=== PATIENT | male | born 1965 | race Caucasian/White ===

== ENCOUNTER 2016-07-14 09:08 | Day surgery (SDC) | payer OTHER ==
[2016-07-13 08:34] VITALS: BMI 21.2
[~2016-07-14 09:08] MED LIST: LACTATED RINGERS 1,000 ML IV SCH
[2016-07-14 09:47] VITALS: TEMP 97.5
[2016-07-14] MEDS ORDERED: PROPOFOL 10 MG/ML 20 ML VIAL IV ONE (10:46)
[2016-07-14] MEDS ORDERED: LIDOCAINE 1% INJ 10MG/ML (20 ML MDV) ONE (10:46)
--- NOTE | 2016-07-14 11:18 | P.PCN ---
Date of Procedure: 07/14/16 Procedure(s) Performed: Procedure: Total colonoscopy. Preoperative diagnosis: Screening for neoplasia. Postoperative diagnosis: Poor preparation on the right side, otherwise, exam within normal limits. Preparation: HalfLytely prep. Sedation: Was provided by anesthesia. Brief clinical history: The patient is a 50-year-old male who is referred for this evaluation for screening for neoplasia. He has no abdominal complaints, bleeding or anemia. No family history of colon cancer. This would be his first colonoscopy. Procedure: With the patient on his left lateral decubitus position and after informed consent and adequate sedation, the perianal area was inspected and it did not show any fissures or fistulas. There were no masses felt on digital rectal examination. The Olympus CFQ 160L video colonoscope was then inserted in the rectum in the usual fashion and advanced to the cecum. The preparation was not ideal on the right side and cecum with sticky fecal material that could not be washed off the wall completely. Where visualized, the mucosa appeared healthy. No polyps or tumors were seen or any obvious diverticular disease. I retroflexed endoscope in the rectum before the endoscope was withdrawn. Low- grade internal hemorrhoids were noted but there was no bleeding. The patient tolerated the procedure well. Plan: The patient was reassured. He will follow up with you as planned and I recommended repeat exam in 5 years before we go with a 10-year scheduled.
[2016-07-14 11:37] VITALS: RESP 18
[2016-07-14 11:52] VITALS: BP 135/77; PULSE 49
== END 2016-07-14 12:20 | disposition home or self-care (01) ==
LOC: ORWHC2ENDO 09:08
DX: Z12.11 Encounter for screening for malignant neoplasm of colon (principal); K64.8 Other hemorrhoids; F17.200 Nicotine dependence, unspecified, uncomplicated
CPT/HCPCS: J2001; J2704; G0121; 45378

== ENCOUNTER → 2018-07-26 | Outpatient (CLI) | payer OTHER ==
--- NOTE | 2018-07-26 15:17 | US ---
EXAMINATION TYPE: US carotid duplex BILAT DATE OF EXAM: 07/26/2018 COMPARISON: NONE CLINICAL HISTORY: dizziness R42. Dizziness x 1 month. Smoker. EXAM MEASUREMENTS: RIGHT: Peak Systolic Velocity (PSV) cm/sec ----- Right CCA: 112.4 ----- Right ICA: 109.2 ----- Right ECA: 85.3 ICA/CCA ratio: 1.0 RIGHT: End Diastole cm/sec ----- Right CCA: 33.3 ----- Right ICA: 30.0 ----- Right ECA: 14.9 LEFT: Peak Systolic Velocity (PSV) cm/sec ----- Left CCA: 96.5 ----- Left ICA: 92.7 ----- Left ECA: 114.0 ICA/CCA ratio: 1.0 LEFT: End Diastole cm/sec ----- Left CCA: 29.2 ----- Left ICA: 29.2 ----- Left ECA: 26.8 VERTEBRALS (direction of flow): Right Vertebral: Antegrade Left Vertebral: Antegrade Rhythm: Normal Intimal thickening seen bilaterally. Plaque visualized bilateral carotid bifurcations. No elevated ve locities obtained. No significant stenosis seen. Lymph node-appearing areas seen bilaterally. Larges t on right measures: 2.2 x 1.0 x 0.4 cm. Lymph node-appearing area on left measures: 1.5 x 1.0 x 0.5 cm. These measure within normal limits. IMPRESSION: Mild degree of grayscale atheromatous plaquing with no sonographically evident hemodynam ically significant stenosis within either visualized carotid arterial system. Criteria for Assigning % of Stenosis / Diameter reduction (Estimation based on the indirect measurements of the internal carotid artery velocities (ICA PSV). 1. Normal (no stenosis)=ICA PSV < 125 cm/s: ratio < 2.0: ICA EDV<40 cm/s. 2. Less than 50% stenosis=ICA PSV < 125 cm/s: ratio < 2.0: ICA EDV<40 cm/s. 3. 50 to 69% stenosis=ICA PSV of 125 to 230 cm/s: ration 2.0 ? 4.0: ICA EDV 40-100 cm/s. 4. Greater than 70% stenosis to near occlusion= ICA PSV > 230 cm/s: ratio > 4.0: ICA EDV > 100 cm/s. 5. Near occlusion= ICA PSV velocities may be low or undetectable: variable ratio and ICA EDV. 6. Total occlusion=unable to detect flow.
== END | disposition home or self-care (01) ==
LOC: RADUSWWP 14:04
PROVIDERS: ATTEND Internal Medicine
DX: I65.23 Occlusion and stenosis of bilateral carotid arteries (principal)
CPT/HCPCS: 93880

== ENCOUNTER → 2018-08-15 | Outpatient (CLI) | payer OTHER ==
--- NOTE | 2018-08-15 19:12 | ECHOF ---
Referral Reason:dizziness R42 MEASUREMENTS -------- HEIGHT: 188.0 cm WEIGHT: 77.1 kg BP: 124/67 IVSd: 1.2 cm (0.6 - 1.1) LVIDd: 3.7 cm (3.9 - 5.3) LVPWd: 1.2 cm (0.6 - 1.1) IVSs: 1.5 cm LVIDs: 2.7 cm LVPWs: 1.6 cm LA Diam: 2.8 cm (2.7 - 3.8) RVIDd: 2.7 cm (< 3.3) LAESV Index (A-L): 18.23 ml/m Ao Diam: 3.2 cm (2.0 - 3.7) AV Cusp: 2.2 cm (1.5 - 2.6) EPSS: 0.4 cm MV E Kolby: 0.90 m/s MV DecT: 266 ms MV A Kolby: 0.64 m/s MV E/A Ratio: 1.41 RAP: 5.00 mmHg RVSP: 29.16 mmHg MV EF SLOPE: 81.25 mm/s (70 - 150) MV EXCURSION: 18.48 mm (> 18.000) FINDINGS -------- Sinus rhythm. This was a technically good study. The left ventricular size is normal. There is borderline concentric left ventricular hypertrophy. Overall left ventricular systolic function is normal with, an EF between 60 - 65 %. The right ventricle is normal in size. Normal LA size by volume 22+/-6 ml/m2. The right atrium is normal in size. Interatrial and interventricular septum intact. The aortic valve is trileaflet and appears structurally normal. The mitral valve is normal. Mild tricuspid regurgitation present. Right ventricular systolic pressure is normal at < 35 mmHg. Trace/mild (physiologic) pulmonic regurgitation. The aortic root size is normal. Normal inferior vena cava with normal inspiratory collapse consistent with estimated right atrial pre ssure of 5 mmHg. There is no pericardial effusion. CONCLUSIONS -------- 1. Sinus rhythm. 2. This was a technically good study. 3. The left ventricular size is normal. 4. There is borderline concentric left ventricular hypertrophy. 5. Overall left ventricular systolic function is normal with, an EF between 60 - 65 %. 6. The right ventricle is normal in size. 7. Normal LA size by volume 22+/-6 ml/m2. 8. The right atrium is normal in size. 9. Interatrial and interventricular septum intact. 10. The aortic valve is trileaflet and appears structurally normal. 11. The mitral valve is normal. 12. Mild tricuspid regurgitation present. 13. Right ventricular systolic pressure is normal at < 35 mmHg. 14. Trace/mild (physiologic) pulmonic regurgitation. 15. The aortic root size is normal. 16. Normal inferior vena cava with normal inspiratory collapse consistent with estimated right atrial pressure of 5 mmHg. 17. There is no pericardial effusion. RESTAURANT TEAM MEMBER: Natalee Thompson RDCS
== END | disposition home or self-care (01) ==
LOC: RADECHMAIN 11:02
PROVIDERS: ATTEND Internal Medicine
DX: R42 Dizziness and giddiness (principal)
CPT/HCPCS: 93306

== ENCOUNTER → 2018-09-26 | Outpatient (CLI) | payer OTHER ==
--- NOTE | 2018-09-26 21:50 | CT ---
EXAMINATION TYPE: CT soft tissue neck w con DATE OF EXAM: 09/26/2018 COMPARISON: None HISTORY: 52-year-old male Enlarged lymph nodes TECHNIQUE: Contiguous axial scanning of the soft tissues of the neck performed with IV Contrast, janey ent injected with 100 mL of Isovue 300. Coronal/sagittal reconstructions performed. CT DLP: 329.2 mGycm Automated exposure control for dose reduction was used. FINDINGS: Visualized upper lungs show mild centrilobular emphysema with biapical pleural-parenchymal scarring. Upper descending thoracic aorta is ectatic at 3.2 cm. Conventional arch vessel branching anatomy. Thyroid, submandibular, and parotid glands appear satisfactory. A few scattered prominent but nonenlarged cervical lymph nodes measure up to 8 mm short axis. No cerv ical lymphadenopathy by CT size criteria. Scattered mild mucosal thickening ethmoid air cells and left sphenoid sinus. Mastoid air cells, visua lized orbits and globes, and visualized intracranial structures appear clear. Nasopharynx shows mild hypertrophy of the adenoid tonsils. The oropharynx is clear. Epiglottis and prevertebral soft tissues are satisfactory. Glottic and subglottic structures as well as the tracheal column are clear. Moderate to advanced disc/endplate degenerative change C6-C7. IMPRESSION: 1. NO SUSPICIOUS LYMPHADENOPATHY OR NECK MASS IDENTIFIED. IF THERE IS PERSISTENT CLINICAL CONCERN, TH E EXAM CAN BE REVIEWED WITH DIRECT ATTENTION. 2. MILD HYPERTROPHY OF THE ADENOIDS PROBABLY REACTIVE. 3. COPD WITH MILD EMPHYSEMA.
== END | disposition home or self-care (01) ==
LOC: RADCTMAIN 06:46
PROVIDERS: ATTEND Internal Medicine
DX: J35.2 Hypertrophy of adenoids (principal)
CPT/HCPCS: 70491; Q9967

== ENCOUNTER → 2019-04-04 | Outpatient (CLI) | payer OTHER ==
--- NOTE | 2019-04-04 11:41 | XR ---
EXAMINATION TYPE: XR Hip Complete LT DATE OF EXAM: 04/04/2019 CLINICAL HISTORY: Left hip pain TECHNIQUE: AP and frogleg views of the left hip are obtained. COMPARISON: None. FINDINGS: There is no acute fracture/dislocation evident in the left hip. The joint space in the le ft hip alignment however there is marked acetabular roof sclerosis and few subchondral cysts. There i s also cephalad joint space narrowing. Femoral head maintains a normal rounded contour. The overlyin g soft tissue appears unremarkable. IMPRESSION: There is no acute fracture or dislocation in the left hip. Moderate arthropathy of the l eft hip with marked acetabular roof sclerosis.
== END | disposition home or self-care (01) ==
LOC: RADXRMAIN 11:04
PROVIDERS: ATTEND Internal Medicine
DX: M16.12 Unilateral primary osteoarthritis, left hip (principal)
CPT/HCPCS: 73502

== ENCOUNTER 2019-05-05 10:51 | Emergency (ER) | payer OTHER ==
[2019-05-05] MEDS ORDERED: KETOROLAC 30 MG/ML 1 ML VIAL IVP STA (11:16)
[2019-05-05] MEDS ORDERED: MORPHINE SULFATE 4 MG/ML SYRINGE IV STA (11:16)
[2019-05-05] MEDS ORDERED: SODIUM CHLORIDE 0.9% 1,000 ML IV STA (11:16)
--- NOTE | 2019-05-05 11:22 | ED ---
General Adult HPI - General Chief complaint: Back Pain/Injury Stated complaint: back pain Time Seen by Provider: 05/05/19 11:00 Source: patient Mode of arrival: ambulatory Limitations: no limitations - History of Present Illness Initial comments: Patient presents the ED complaining of having left flank/low back pain intermittently for the past week or so. Patient states that his pain has become severe this morning. Patient states that his pain is worse with changes in position, but he states that he also has pain while at rest. Patient denies kno wn trauma or injury. Patient denies fever or chills, headache, chest pain, dyspnea, dizziness, abdominal pain, nausea or vomiting, diarrhea, dysuria/hematuria/urinary frequency/urinary symptoms, leg pain/numbness/weakness, incontinence, urinary retention, or any other symptoms or complaints. Patient states that he got a ride to the ED this morning. - Related Data Previous Rx's Medication Instructions Recorded Cyclobenzaprine [Flexeril] 10 mg PO TID PRN #12 tablet 05/05/19 Allergies Allergy/AdvReac Type Severity Reaction Status Date / Time No Known Allergies Allergy Verified 05/05/19 10:57 Review of Systems ROS Statement: Those systems with pertinent positive or pertinent negative responses have been documented in the HPI. ROS Other: All systems not noted in ROS Statement are negative. Past Medical History Past Medical History: Chest Pain / Angina Additional Past Medical History / Comment(s): irregular heartbeat, History of Any Multi-Drug Resistant Organisms: None Reported Past Surgical History: Appendectomy, Hernia Repair, Tonsillectomy Additional Past Surgical History / Comment(s): lump removed from vocal cords, lump removed from back, chest tube for collapsed lung Past Anesthesia/Blood Transfusion Reactions: No Reported Reaction Past Psychological History: No Psychological Hx Reported Smoking Status: Current every day smoker Past Alcohol Use History: None Reported Past Drug Use History: Marijuana - Past Family History Mother Family Medical History: Cancer, Deep Vein Thrombosis (DVT), Pulmonary Embolus General Exam Limitations: no limitations General appearance: alert, in no apparent distress Head exam: Present: atraumatic, normocephalic Eye exam: Present: normal appearance, EOMI ENT exam: Present: mucous membranes moist Neck exam: Present: other (Trachea is in midline) Respiratory exam: Present: normal lung sounds bilaterally. Absent: respiratory distress, wheezes, rales, rhonchi Cardiovascular Exam: Present: regular rate, normal rhythm, normal heart sounds, other (Normal radial pulses bilaterally) GI/Abdominal exam: Present: soft. Absent: distended, tenderness, guarding Extremities exam: Present: full ROM. Absent: tenderness, pedal edema, calf tenderness Back exam: Present: normal inspection, full ROM, other (Mild left lumbar tenderness; no midline spinal tenderness). Absent: CVA tenderness (R), CVA tenderness (L) Neurological exam: Present: alert, oriented X3, other (Patient has no evidence of lower extremity neurological deficit or saddle anesthesia on exam.). Absent: motor sensory deficit Psychiatric exam: Present: normal affect, normal mood Skin exam: Present: warm, dry, intact, normal color Course Vital Signs 05/05/19 10:55 Temperature 97.8 F Pulse Rate 68 Respiratory 20 Rate Blood Pressure 127/86 O2 Sat by Pulse 99 Oximetry - Reevaluation(s) Reevaluation #1: 05/05/19 14:15 Patient states that his pain has improved with ED treatment, and he denies development of any new pain or symptoms while in the ED. Patient is aware of his test results, and he feels comfortable going home at this time. Patient to get a ride home from the ED today. Medical Decision Making - Medical Decision Making Patient reports that his pain is worse with changes in position, and I suspect that his pain is likely musculoskeletal in etiology. Patient's CT abdomen and pelvis is negative for ureteral stone or explanation for his pain. Patient was counseled about lumbar back pain, and he feels comfortable going home at this time. He was instructed to follow up closely with his primary care provider, and he was clearly explained return instructions. He feels comfortable with this plan. - Lab Data Result diagrams: 05/05/19 11:29 05/05/19 11:29 Lab Results 05/05/19 05/05/19 05/05/19 Range/Units 11:29 11:29 11:50 WBC 7.7 (3.8-10.6) k/uL RBC 5.09 (4.30-5.90) m/uL Hgb 16.7 (13.0-17.5) gm/dL Hct 49.4 (39.0-53.0) % MCV 96.9 (80.0-100.0) fL MCH 32.9 (25.0-35.0) pg MCHC 33.9 (31.0-37.0) g/dL RDW 12.1 (11.5-15.5) % Plt Count 229 (150-450) k/uL Neutrophils % 70 % Lymphocytes % 19 % Monocytes % 7 % Eosinophils % 1 % Basophils % 1 % Neutrophils # 5.4 (1.3-7.7) k/uL Lymphocytes # 1.4 (1.0-4.8) k/uL Monocytes # 0.5 (0-1.0) k/uL Eosinophils # 0.1 (0-0.7) k/uL Basophils # 0.0 (0-0.2) k/uL Sodium 134 L (137-145) mmol/L Potassium 4.6 (3.5-5.1) mmol/L Chloride 103 (98-107) mmol/L Carbon Dioxide 25 (22-30) mmol/L Anion Gap 6 mmol/L BUN 8 L (9-20) mg/dL Creatinine 0.67 (0.66-1.25) mg/dL Est GFR (CKD-EPI)AfAm >90 (>60 ml/min/1.73 sqM) Est GFR (CKD-EPI)NonAf >90 (>60 ml/min/1.73 sqM) Glucose 103 H (74-99) mg/dL Calcium 9.2 (8.4-10.2) mg/dL Total Bilirubin 0.9 (0.2-1.3) mg/dL AST 27 (17-59) U/L ALT 23 (4-49) U/L Alkaline Phosphatase 85 (38-126) U/L Total Protein 7.4 (6.3-8.2) g/dL Albumin 4.3 (3.5-5.0) g/dL Urine Color Yellow Urine Appearance Clear (Clear) Urine pH 6.5 (5.0-8.0) Ur Specific [place] 1.012 (1.001-1.035) Urine Protein Negative (Negative) Urine Glucose (UA) Negative (Negative) Urine Ketones Negative (Negative) Urine Blood Negative (Negative) Urine Nitrite Negative (Negative) Urine Bilirubin Negative (Negative) Urine Urobilinogen <2.0 (<2.0) mg/dL Ur Leukocyte Esterase Negative (Negative) - Radiology Data Radiology results: report reviewed (CT abdomen and pelvis: Urinary bladder wall thickening correlate for cystitis, small bowel wall thickening especially in the jejunal region correlate for enteritis, no evidence of ureteral calcification or hydronephrosis) Disposition Clinical Impression: Lumbar back pain Disposition: HOME SELF-CARE Condition: Stable Instructions (If sedation given, give patient instructions): Acute Low Back Pain (ED) Additional Instructions: Return to the ER immediately should you develop new or worsening pain, leg numbness or weakness, trouble controlling your bladder or bowels, shortness of breath, feeling dizzy or faint, fever, vomiting, or near worsening symptoms. Follow up closely with her primary care provider. Prescriptions: Cyclobenzaprine [Flexeril] 10 mg PO TID PRN #12 tablet PRN Reason: Pain Is patient prescribed a controlled substance at d/c from ED?: No Referrals: Charleen Sánchez MD [Primary Care Provider] - 1-2 days Time of Disposition: 14:19
[2019-05-05 11:47] LABS: Basophils % (A) 1 %; Eosinophils # (A) 0.1 k/uL (0-0.7); Eosinophils % (A) 1 %; HCT 49.4 % (39.0-53.0); HGB 16.7 gm/dL (13.0-17.5); Lymphocytes # (A) 1.4 k/uL (1.0-4.8); Lymphocytes % (A) 19 %; MCH 32.9 pg (25.0-35.0); MCHC 33.9 g/dL (31.0-37.0); MCV 96.9 fL (80.0-100.0); Mean Platelet Volume 7.2; Monocytes # (A) 0.5 k/uL (0-1.0); Monocytes % (A) 7 %; Neutrophils # (A) 5.4 k/uL (1.3-7.7); Neutrophils % (A) 70 %; Platelet Count 229 k/uL (150-450); RBC 5.09 m/uL (4.30-5.90); RDW 12.1 % (11.5-15.5); WBC 7.7 k/uL (3.8-10.6)
[2019-05-05 11:59] LABS: ALT 23 U/L (4-49); AST 27 U/L (17-59); African American GFR (CKD) >90 (>60 ml/min/1.73 sqM); Albumin 4.3 g/dL (3.5-5.0); Alkaline Phosphatase 85 U/L (38-126); Anion Gap 6 mmol/L; Blood Urea Nitrogen 8 mg/dL (9-20); Calcium 9.2 mg/dL (8.4-10.2); Carbon Dioxide 25 mmol/L (22-30); Chloride 103 mmol/L (98-107); Glucose 103 mg/dL (74-99); Non-African American GFR(CKD) >90 (>60 ml/min/1.73 sqM); Potassium 4.6 mmol/L (3.5-5.1); Sodium 134 mmol/L (137-145); Total Bilirubin 0.9 mg/dL (0.2-1.3); Total Protein 7.4 g/dL (6.3-8.2)
[2019-05-05 12:03] LABS: Appearance,Urine Clear (Clear); Bilirubin,Urine Negative (Negative); Blood,Urine Negative (Negative); Color,Urine Yellow; Glucose,Urine (UA) Negative (Negative); Ketones,Urine Negative (Negative); Leukocyte Esterase,Urine Negative (Negative); Nitrite,Urine Negative (Negative); PH, Urine 6.5 (5.0-8.0); Protein,Urine Negative (Negative); Specific Gravity,Urine 1.012 (1.001-1.035); Urobilinogen,Urine <2.0 mg/dL (<2.0)
--- NOTE | 2019-05-05 12:33 | CT ---
EXAMINATION TYPE: CT abdomen pelvis wo con DATE OF EXAM: 05/05/2019 COMPARISON: None HISTORY: Left flank pain. CT DLP: 460.8 mGycm Automated exposure control for dose reduction was used. TECHNIQUE: Helical acquisition of images from the lung bases through the pelvis. FINDINGS: Lack of intravenous contrast could compromise sensitivity of the exam. Gastric wall thicken ing may be due to lack of distention but is nonspecific. LUNG BASES: No significant abnormality is appreciated. AORTA: No significant abnormality is appreciated. LIVER/GB: No significant abnormality is appreciated. PANCREAS: No significant abnormality is seen. SPLEEN: No significant abnormality is seen. ADRENALS: No significant abnormality is seen. KIDNEYS: Kidneys show no hydronephrosis, there is no evident renal calculus or ureteral calculus. Cir cumaortic left renal vein is noted. Right kidney shows low dense focus at the lower pole likely a cor tical cyst measuring 13 mm REPRODUCTIVE ORGANS: Prostate is enlarged and shows associated calcification URINARY BLADDER: Urinary bladder wall thickening could be due to lack of distention, correlate to ex clude cystitis BOWEL: Small bowel shows wall thickening especially in the jejunal region. Fluid-filled loops of sma ll bowel are noted throughout the abdomen. No evident appendicitis. FREE AIR: No Free Air is visible. ASCITES: None visible. PELVIC ADENOPATHY: None visualized. RETROPERITONEAL ADENOPATHY: No Retroperitoneal Adenopathy visible. OSSEOUS STRUCTURES: No significant abnormality is seen. IMPRESSION: NONSPECIFIC FINDINGS DESCRIBED ABOVE, CORRELATE TO EXCLUDE ENTERITIS, CYSTITIS. NO EVIDENT URETERAL C ALCIFICATION, NO HYDRONEPHROSIS. LIMITED NONCONTRAST EXAM. ADDITIONAL FINDINGS ABOVE.
[2019-05-05 14:45] VITALS: BP 133/101; PULSE 59; RESP 18; TEMP 98
== END 2019-05-05 14:35 | disposition home or self-care (01) ==
LOC: EC 10:51
DX: M54.5 Low back pain (principal); F17.200 Nicotine dependence, unspecified, uncomplicated
CPT/HCPCS: 36415; 80053; 85025; 81003; 74176; 99284; 96374; 96375; 96361 ×2; J2270; J1885

== ENCOUNTER → 2020-06-05 | Outpatient (CLI) | payer OTHER ==
--- NOTE | 2020-06-05 12:06 | XR ---
EXAMINATION TYPE: XR chest 2V DATE OF EXAM: 06/05/2020 COMPARISON: 11/16/2011 INDICATION: Cough TECHNIQUE: Frontal and lateral views of the chest are obtained. FINDINGS: The heart size is normal. The pulmonary vasculature is normal. The lungs are clear. There is hyperinflation of diaphragms compatible with COPD. IMPRESSION: 1. No acute pulmonary process. 2. Evaluation for qualifying for low-dose CT chest.
== END | disposition home or self-care (01) ==
LOC: RADXRMAIN 11:31
PROVIDERS: ATTEND Internal Medicine
DX: R05 Cough (principal)
CPT/HCPCS: 71046

== ENCOUNTER → 2021-12-02 | Outpatient (CLI) | payer OTHER ==
--- NOTE | 2021-12-02 13:12 | XR ---
EXAMINATION TYPE: XR lumbar spine 2 or 3V DATE OF EXAM: 12/02/2021 CLINICAL HISTORY: pain TECHNIQUE: Three views of the lumbar spine are submitted. COMPARISON: None. FINDINGS: There are 5 lumbar type vertebral bodies identified. The lumbar spine shows satisfactory alignment w ithout evidence of acute fracture or dislocation. Vertebral body heights are within normal limits. Moderate multilevel degenerative disc space narrowing and spondylosis. Facet joint arthropathy. The overlying soft tissue appears unremarkable. IMPRESSION: No acute fracture or dislocation is seen in the lumbar spine. ICD 10 NO FRACTURE, INITIAL EVALUATION
--- NOTE | 2021-12-02 13:14 | XR ---
EXAMINATION TYPE: XR thoracic spine complete DATE OF EXAM: 12/02/2021 CLINICAL HISTORY: pain TECHNIQUE: Frontal, lateral, and swimmer's view of thoracic spine are obtained. COMPARISON: None. FINDINGS: Thoracic spine show satisfactory alignment without evidence of acute fracture or dislocatio n. Vertebral body heights are preserved. Moderate multilevel degenerative disc space narrowing and s pondylosis. Visualized ribs are unremarkable. IMPRESSION: No acute fracture or dislocation is seen in the thoracic spine. ICD 10 NO FRACTURE, INIT IAL EVALUATION
== END | disposition home or self-care (01) ==
LOC: RADXRMAIN 11:49
PROVIDERS: ATTEND Internal Medicine
DX: M54.16 Radiculopathy, lumbar region (principal); M54.6 Pain in thoracic spine
CPT/HCPCS: 72072; 72100

== ENCOUNTER → 2022-10-05 | Outpatient (CLI) | payer OTHER ==
--- NOTE | 2022-10-05 16:16 | XR ---
EXAMINATION TYPE: XR chest 2V DATE OF EXAM: 10/05/2022 3:09 PM COMPARISON: Chest radiographs from 06/05/2020 TECHNIQUE: XR chest 2V Frontal and lateral views of the chest. CLINICAL INDICATION:Male, 56 years old with history of R05.9 COUGH; FINDINGS: Lungs/Pleura: There is no evidence of pleural effusion, focal consolidation, or pneumothorax. Pulmonary vascularity: Unremarkable. Heart/mediastinum: Cardiomediastinal silhouette is unremarkable. Musculoskeletal: No acute osseous pathology. IMPRESSION: No acute cardiopulmonary disease/process.
== END | disposition home or self-care (01) ==
LOC: RADXRMAIN 14:48
PROVIDERS: ATTEND Internal Medicine
DX: R05.9 Cough, unspecified (principal); R60.0 Localized edema
CPT/HCPCS: 71046

== ENCOUNTER → 2022-11-12 | Outpatient (CLI) | payer OTHER ==
--- NOTE | 2022-11-13 12:32 | MR ---
EXAMINATION TYPE: MR Prostate wo/w con DATE OF EXAM: 11/12/2022 9:40 AM COMPARISON: None. CLINICAL INDICATION:Male, 56 years old with history of R97.20 ELEVATED PROSTATE SPECIFIC ANTIGEN; Ree vated PSA TECHNIQUE: Multi-planar, multi-sequence imaging of the pelvis is performed prior to and following the uncomplicated administration of bolus intravenous gadolinium. CONTRAST: 7.5 Gadavist Interpretive Criteria: PI-RADS v2.1 SERUM PSA: 5.7 and 10/12/2022. 5.8 on 09/28/2022. SURGICAL PATHOLOGY: No data available. FINDINGS: Prostatic dimensions: 4.5 x 4.3 x 2.8 cm. "Bullet" Volume:35.46 (PSA density=0.16 ng/mL/mL) CENTRAL GLAND (Central and Transition Zones/CZ+TZ): Multiple bilateral, heterogenous appearing hypertrophic stromal nodules, without suspicious lesion. ( PI-RADS 2) PERIPHERAL ZONE (PZ): Right anterior peripheral zone 7 mm area of high DWI intermediate ADC signal and associated low T2 si gnal. (PI-RADS 3) SEMINAL VESICLES (SV): Symmetric and unremarkable. PERIPROSTATIC TISSUES: Unremarkable. LYMPH NODES: No enlarged pelvic lymph node. REMAINING PELVIS: Bladder wall is within normal limits given distention. No abnormal free or organized intrapelvic fluid collection. No pathologic bowel dilation or mural thickening. No hernia visualized OSSEOUS STRUCTURES: No suspicious osseous abnormality. Right perilabral cysts superiorly measuring 41 x 16 mm. Subchondra l edema within the left femoral head. IMPRESSION: 1. PI-RADS 3 lesion in the right anterior peripheral zone mid gland measuring 7 mm. 2. Right paravertebral cysts suggestive of right hip labral tear. Additionally degeneration changes o f the left hip with subchondral edema possibly deformity to the femoral head articular surface. Consi anny further evaluation with plain film radiographs for osteoarthrosis/osteonecrosis and MRI right hip arthrogram for evaluation for right hip labral tear.
== END | disposition home or self-care (01) ==
LOC: RADMRIMAIN 08:17
PROVIDERS: ATTEND Urology
DX: M16.12 Unilateral primary osteoarthritis, left hip (principal); G96.191 Perineural cyst; R97.20 Elevated prostate specific antigen [PSA]; R60.0 Localized edema
CPT/HCPCS: 72197; A9585

== ENCOUNTER → 2022-12-28 | Outpatient (CLI) | payer OTHER ==
[2022-12-28 20:14] LABS: BUN/Creat Ratio 9.12 Ratio (12.00-20.00); Blood Urea Nitrogen 7.3 mg/dL (9.0-27.0); Calcium 9.1 mg/dL (8.7-10.3); Carbon Dioxide 25.6 mmol/L (21.6-31.8); Chloride 100 mmol/L (96-109); Glucose 107 mg/dL (70-110); Potassium 4.9 mmol/L (3.5-5.5); Sodium 134 mmol/L (135-145)
[2022-12-28 20:30] LABS: Basophils # (A) 0.06 X 10*3/uL (0.00-0.10); Basophils % (A) 1.1 %; Eosinophils # (A) 0.06 X 10*3/uL (0.04-0.35); Eosinophils % (A) 1.1 %; HCT 46.7 % (39.6-50.0); HGB 16.1 d/dL (13.0-17.0); Lymphocytes # (A) 1.14 X 10*3/uL (0.90-5.00); Lymphocytes % (A) 20.6 %; MCH 33.6 pg (27.0-32.0); MCHC 34.5 d/dL (32.0-37.0); MCV 97.5 FL (80.0-97.0); Mean Platelet Volume 9.6 FL (9.5-12.2); Monocytes # (A) 0.62 X 10*3/uL (0.20-1.00); Monocytes % (A) 11.2 %; NRBC Per 100 WBC 0 X 10*3/uL (0.00-0.01); Neutrophils # (A) 3.61 X 10*3/uL (1.80-7.70); Neutrophils % (A) 65.3 %; Platelet Count 193 X 10*3/uL (140-440); RBC 4.79 X 10*6/uL (4.40-5.60); RDW 12.2 % (11.5-14.5); WBC 5.53 X 10*3/uL (4.50-10.00)
== END | disposition home or self-care (01) ==
LOC: LABPAT 13:19
PROVIDERS: ATTEND Urology
DX: Z01.812 Encounter for preprocedural laboratory examination (principal); R97.20 Elevated prostate specific antigen [PSA]
CPT/HCPCS: 36415; 80048; 85025

== ENCOUNTER 2022-12-31 12:50 | Day surgery (SDC) | payer OTHER ==
--- NOTE | 2022-12-31 06:36 | P.GSHP ---
History of Present Illness H&P Date: 12/31/22 Chief Complaint: Elevated PSA level The patient is a 57-year-old white male with no family history of prostate cancer. His PSA level was 5.2 in September 2022. A repeat PSA level in October was 5.7. On examination, the prostate was palpably normal. MRI of the prostate revealed a prostate volume of 35 mL, with a 7 mm PI-RADS 3 lesion seen in the right anterior peripheral zone. - Genitourinary (Male) Genitourinary: Reports nocturia Past Medical History Past Medical History: Prostate Disorder Additional Past Medical History / Comment(s): "SMOKER'S COUGH" History of Any Multi-Drug Resistant Organisms: None Reported Past Surgical History: Appendectomy, Hernia Repair, Tonsillectomy Additional Past Surgical History / Comment(s): lump removed from vocal cords, lump removed from back, chest tube for collapsed lung Past Anesthesia/Blood Transfusion Reactions: No Reported Reaction Past Psychological History: No Psychological Hx Reported Smoking Status: Current every day smoker Past Alcohol Use History: Daily Additional Past Alcohol Use History / Comment(s): smokes 1 PPD for 35 yrs Past Drug Use History: Marijuana Additional Drug Use History / Comment(s): SMOKES - Past Family History Mother Family Medical History: Cancer, Deep Vein Thrombosis (DVT), Pulmonary Embolus Medications and Allergies Home Medications Medication Instructions Recorded Confirmed Type No Known Home Medications 12/29/22 12/29/22 History Allergies Allergy/AdvReac Type Severity Reaction Status Date / Time No Known Allergies Allergy Verified 12/29/22 09:19 Surgical - Exam - General well developed, well nourished, no distress - Respiratory normal respiratory effort - Abdomen Abdomen: soft, non tender, no guarding, no rigid, no rebound Hernia: none - Genitourinary normal penis with no external lesions, testicles non-tender - Rectum Rectum: normal sphincter tone, no masses, other (Prostate mildly enlarged and smooth) - Psychiatric oriented to time, oriented to person, oriented to place, speech is normal, memory intact Assessment and Plan (1) Elevated PSA Status: Acute Code(s): R97.20 - ELEVATED PROSTATE SPECIFIC ANTIGEN [PSA] SNOMED Code(s): 565976813 Plan: The patient will undergo MRI-Ultrasound fusion transrectal biopsies of the prostate. The procedure has been reviewed in detail with the patient. He has been made aware of potential risks, which include anesthesia, bleeding, and infection. He is also aware that a negative biopsy does not completely rule out prostate cancer.
[~2022-12-31 12:50] MED LIST changes: +GENTAMICIN 120 MG in SODIUM CHLORIDE 0.9% 100 ML IVPB PRN
[2022-12-31] MEDS ORDERED: LACTATED RINGERS 1,000 ML IV ONE (15:10)
[2022-12-31 15:25] VITALS: TEMP 97.9
[2022-12-31] MEDS ORDERED: MIDAZOLAM 2 MG/2 ML VIAL ONE (15:53)
[2022-12-31] MEDS ORDERED: PROPOFOL 10 MG/ML 20 ML VIAL IV ONE (15:53)
[2022-12-31] MEDS ORDERED: fentaNYL (PF) 50 MCG/ML 2 ML AMP ONE (15:53)
--- NOTE | 2022-12-31 16:26 | P.OP ---
Date of Procedure: 12/31/22 Preoperative Diagnosis: Elevated PSA Postoperative Diagnosis: Same Procedure(s) Performed: MRI fusion biopsies of the prostate Anesthesia: MAC Surgeon: Hemal Rivera Estimated Blood Loss (ml): 5 IV fluids (ml): 200 Pathology: other (Prostate biopsies) Condition: stable Disposition: PACU Indications for Procedure: The patient is a 57-year-old white male with no family history of prostate cancer. His PSA level was 5.2 in September 2022. A repeat PSA level in October was 5.7. On examination, the prostate was palpably normal. MRI of the prostate revealed a prostate volume of 35 mL, with a 7 mm PI-RADS 3 lesion seen in the right anterior peripheral zone. Operative Findings: Biopsies obtained from target lesion, as well as template biopsies. Description of Procedure: The patient was taken to the operating room and placed in the left lateral decubitus position. The [employer] transrectal ultrasound probe was placed intrarectally. It was then placed within the stand of the [employer] MRI/TRUS [facility] on for Prostate Biopsy system. The prostate was imaged in both the axial and sagittal planes, revealing a prostate volume of 24 mL. Using the Biopty gun, 3 biopsies were obtained from the target lesion. The remaining 12 biopsies of the peripheral zone were obtained utilizing a standard template. Once the procedure was completed, the ultrasound probe was removed. The patient tolerated the procedure well was taken to the recovery room stable condition.
[2022-12-31 16:45] VITALS: BP 134/82; PULSE 62; RESP 20
== END 2022-12-31 16:51 ==
LOC: OR 12:50
PROVIDERS: ATTEND Urology
DX: C61 Malignant neoplasm of prostate (principal); N40.0 Benign prostatic hyperplasia without lower urinary tract symptoms; F17.210 Nicotine dependence, cigarettes, uncomplicated; Z90.49 Acquired absence of other specified parts of digestive tract
CPT/HCPCS: 55700; 88305; J2250; J3010; J1580; J2704

== ENCOUNTER → 2023-05-20 | Outpatient (CLI) | payer OTHER ==
--- NOTE | 2023-05-21 15:59 | XR ---
EXAMINATION TYPE: XR thoracic spine 3 views, XR lumbar spine 3V DATE OF EXAM: 05/20/2023 COMPARISON: NONE HISTORY: 57-year-old male M54.50 LOW BACK PAIN, UNSPECIFIED M54.6 PAIN IN TH FINDINGS: Thoracic spine: Slight dextroconvex curvature along the upper third thoracic spine. Bilateral cervical ribs. All pedi cles are visualized. Mild to moderate degenerative disc disease throughout. Vertebral body heights ar e preserved and alignment is maintained. Lumbar spine: 5 lumbar type vertebral bodies. There is mild multilevel degenerative disc disease and endplate spond ylosis. Vertebral body heights are preserved. Degenerative grade 1 retrolisthesis L2-L3 with moderate facet arthropathy lower lumbar spine. IMPRESSION: 1. Thoracic spine: No vertebral compression collapse or malalignment. Bilateral cervical ribs. Mild t o moderate degenerative disc disease throughout. 2. Lumbar spine: No vertebral compression collapse. Mild multilevel degenerative disc disease and fac et arthropathy lower lumbar spine. Degenerative grade 1 retrolisthesis L2-L3.
== END | disposition home or self-care (01) ==
LOC: RADXRMAIN 13:49
PROVIDERS: ATTEND Internal Medicine
DX: M47.816 Spondylosis without myelopathy or radiculopathy, lumbar region (principal); M51.35 Other intervertebral disc degeneration, thoracolumbar region; M43.16 Spondylolisthesis, lumbar region
CPT/HCPCS: 72070; 72100

== ENCOUNTER 2023-11-19 05:50 | Day surgery (SDC) | payer OTHER ==
[2023-11-19] MEDS ORDERED: LACTATED RINGERS 1,000 ML IV SCH (05:55)
[2023-11-19] MEDS: IV FLUID CONTINUATION 1,000 ML IV ONE (06:12)
[2023-11-19 06:36] VITALS: RESP 16; TEMP 97.6
[2023-11-19] MEDS ORDERED: LIDOCAINE 1% INJ 10MG/ML (20 ML MDV) ONE (07:00)
[2023-11-19] MEDS ORDERED: PROPOFOL 10 MG/ML 20 ML VIAL IV ONE (07:00)
--- NOTE | 2023-11-19 07:27 | P.PCN ---
Date of Procedure: 11/19/23 Procedure(s) Performed: Brief history: Patient is a pleasant 57-year-old white male scheduled for an elective upper endoscopy as well as colonoscopy as a part of evaluation of GERD/Balbuena's esophagus and screening for colon cancer Procedure performed: Esophagogastroduodenoscopy with biopsy Colonoscopy with snare polypectomy Preoperative diagnosis: GERD/Balbuena's esophagus Screening for colon cancer Anesthesia: MAC Procedure: After informed consent was obtained from the patient was brought into the endoscopy unit and IV sedation was administered by anesthesia under continuous monitoring. Initially upper endoscopy was done. The Olympus GF 160 video endoscope was inserted inserted into the mouth and esophagus intubated without any difficulty and was gradually advanced into the stomach and duodenum and carefully examined. The bulb and second part of the duodenum appeared normal. The scope was then withdrawn into the stomach adequately insufflated with air and upon careful examination the antrum and body, cardia and fundus appeared normal. The scope was then withdrawn into the esophagus. Small hiatal hernia noted. The GE junction was located at 40 cm to the incisors. It appeared irregular with no erythema erosions or ulcerations. There was a 3 mm tongues of Balbuena's appearing mucosa just proximal to the GE junction that was biopsied. Rest of the esophagus appeared normal. Patient tolerated the procedure well. At this time the patient continued to remain sedation. Initial digital rectal examination was normal. Olympus CF 160 video colonoscope was then inserted into the rectum and gradually advanced to the cecum without any difficulty. Careful examination was performed as the scope was gradually being withdrawn. The prep was excellent. The cecum, ascending colon, transverse colon, descending colon, sigmoid colon appeared normal. In the proximal rectum at 16 cm from the anal verge there was a 1.5 cm pedunculated polyp that was removed by snare polypectomy. Rest of the rectum appeared normal. Retroflexion was performed in the rectum and no lesions were noted. Patient tolerated the procedure well. Impression: 1. Upper endoscopy revealed a small hiatal hernia and a 3 mm tongue of Balbuena's appearing mucosa just proximal to the GE junction s/p biopsy 2. Colonoscopy revealed 1.5 cm pedunculated proximal rectal polyp at 15 cm from the anal verge s/p polypectomy. Recommendations: Findings of this examination were discussed with the patient as well as his family. He was advised to follow-up with the biopsy results. If the biopsy confirms the presence of Balbuena's esophagus he can have repeat upper endoscopy in 3 years. Decrease omeprazole to 20 mg daily and follow antireflux measures. If the biopsy of the colon polyp reveals adenoma, recommended repeat colonoscopy in 3 years
[2023-11-19 08:01] VITALS: BP 129/78; PULSE 74
== END 2023-11-19 08:02 | disposition home or self-care (01) ==
LOC: ORWHC2ENDO 05:50
PROVIDERS: ATTEND Internal Medicine Gastroenterology
DX: Z12.11 Encounter for screening for malignant neoplasm of colon (principal); D12.8 Benign neoplasm of rectum; K44.9 Diaphragmatic hernia without obstruction or gangrene; I10 Essential (primary) hypertension; F17.200 Nicotine dependence, unspecified, uncomplicated; Z79.899 Other long term (current) drug therapy; Z98.890 Other specified postprocedural states
CPT/HCPCS: 88305; 45385; 43239; J2001; J2704

== ENCOUNTER → 2024-07-06 | Outpatient (CLI) | payer OTHER | END | disposition home or self-care (01) | LOC: LABWHC1 15:00 | PROVIDERS: ATTEND Urology | DX: C61 Malignant neoplasm of prostate (principal) | CPT/HCPCS: 36415; 84153 ==